=== PATIENT | female | born 1975 | race Caucasian/White ===

== ENCOUNTER → 2018-12-23 | Outpatient (CLI) | payer BC ==
--- NOTE | 2018-12-24 11:53 | REP ---
RIGHT KNEE, FIVE VIEWS: There is no evidence of an acute fracture, dislocation or intrinsic bone disease. IMPRESSION: No fracture or dislocation. Electronically Signed by Mehrdad Stone MD 12/24/2018 11:26 P
--- NOTE | 2018-12-24 11:54 | REP ---
RIGHT ANKLE, FOUR VIEWS: There is no evidence of an acute fracture, dislocation or intrinsic bone disease. The ankle mortise is anatomic. IMPRESSION: No fracture or dislocation. Electronically Signed by Mehrdad Stone MD 12/24/2018 11:26 P
== END ==
LOC: M ADAMS 13:29
PROVIDERS: ATTEND Physician Assistant Medical
DX: M25.561 Pain in right knee (principal); M25.571 Pain in right ankle and joints of right foot

== ENCOUNTER → 2020-09-28 | Outpatient (CLI) | payer BC ==
--- NOTE | 2020-09-29 03:12 | REP ---
INDICATION: RADIAL STYLID TENOSYNOVITIS COMPARISON: None. TECHNIQUE: AP, lateral, bilateral oblique views left wrist. FINDINGS: The carpal bones, surrounding osseous structures, soft tissues, and joint spaces are normal. There is no evidence for acute fracture or dislocation. No subcutaneous emphysema or radiodense foreign body. No periarticular calcifications or loose bodies are identified. No obvious chondrocalcinosis. IMPRESSION: Normal age-appropriate left wrist series. <Electronically signed by Davonte Ramon > 09/29/20 [id number]
--- NOTE | 2020-09-29 03:15 | REP ---
INDICATION: RADICULOPATHY, CERVICAL REGION COMPARISON: None. TECHNIQUE: AP, lateral, flexion/extension, bilateral oblique, and open-mouth views. FINDINGS: Alignment and lordosis is maintained. There is no evidence for acute fracture / compression injury or subluxation. Very minimal endplate sclerosis with disc space narrowing and very subtle marginal spurring at C6-7 noted. No further significant degenerative changes identified by radiographic evaluation. Oblique views demonstrate normal patent neural foramen. C1-C2 articulation and odontoid process are normal. Prevertebral soft tissues are normal. IMPRESSION: Mild focal degenerative changes at C6-7. <Electronically signed by Davonte Ramon > 09/29/20 [id number]
== END ==
LOC: M ADAMS 15:17
PROVIDERS: ATTEND Family Medicine
DX: M65.4 Radial styloid tenosynovitis [de Quervain] (principal); M54.12 Radiculopathy, cervical region; M50.323 Other cervical disc degeneration at C6-C7 level

== ENCOUNTER → 2023-07-27 | Outpatient (REF) | payer BC | LOC: M PLALAB 15:21 | PROVIDERS: ATTEND Advanced Practice Midwife | DX: Z12.4 Encounter for screening for malignant neoplasm of cervix (principal) | CPT/HCPCS: 87624; G0123 ==

== ENCOUNTER → 2023-07-27 | Outpatient (CLI) | payer BC | LOC: M WHC 14:23 | PROVIDERS: ATTEND Advanced Practice Midwife | DX: Z12.31 Encounter for screening mammogram for malignant neoplasm of breast (principal) ==

== ENCOUNTER → 2023-12-11 | Outpatient (CLI) | payer BC | LOC: M WHC 14:16 | PROVIDERS: ATTEND Family Medicine | DX: M85.851 Other specified disorders of bone density and structure, right thigh (principal); M85.852 Other specified disorders of bone density and structure, left thigh ==

== ENCOUNTER → 2024-09-24 | Outpatient (CLI) | payer BC | LOC: M WHC 14:56 | PROVIDERS: ATTEND Nurse Practitioner Family | DX: Z12.31 Encounter for screening mammogram for malignant neoplasm of breast (principal) ==